=== PATIENT | male | born 1995 | race Caucasian/White ===

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

== ENCOUNTER 2020-12-01 09:18 | Emergency (ER) | payer OTHER, SELFPAY ==
[2020-12-01] MEDS ORDERED: Boostrix 0.5 ML (Tdap) VIAL ONE (09:55)
== END 2020-12-01 10:05 | disposition home or self-care (01) ==
LOC: NAV ERS 09:18
DX: L02.416 Cutaneous abscess of left lower limb (principal)
CPT/HCPCS: 90471; 90715

== ENCOUNTER 2022-04-02 19:57 | Emergency (ER) | payer OTHER, SELFPAY | END 2022-04-02 21:32 | disposition home or self-care (01) | LOC: NAV ERS 19:57 | DX: S71.151A Open bite, right thigh, initial encounter (principal); S61.257A Open bite of left little finger without damage to nail, initial encounter; W54.0XXA Bitten by dog, initial encounter ==

== ENCOUNTER 2022-04-24 14:22 | Emergency (ER) | payer OTHER, SELFPAY ==
[2022-04-24] MEDS ORDERED: Fentanyl 100 MCG/2 ML VIAL ONE (15:09)
[2022-04-24] MEDS ORDERED: cefTRIAXone\\ROCEPHIN 2 GM VIAL ONE (15:09)
[2022-04-24] MEDS ORDERED: Sodium Chloride 0.9% 1,000 ML ONE (15:09)
[2022-04-24] MEDS ORDERED: Sodium Chloride 0.9% 100 ML ONE (15:09)
[2022-04-24 15:24] LABS: #Eosinphils 0.1 thou/uL (0.0-0.7); #Lymphocytes 1.5 thou/uL (1.20-3.40); #Monocytes 0.7 thou/uL (0.11-0.59); #Neutrophils 5.8 thou/uL (1.40-6.50); %Basophils 0.4 % (0.0-1.0); %Eosinophils 0.9 % (0.0-10.0); %Lymphocytes 18.4 % (21.0-51.0); %Monocytes 8.8 % (0.0-10.0); %Neutrophils 71.6 % (42.0-75.0); Hemoglobin 13.9 g/dL (14.0-18.0); Mean Corpuscular HGB CONC 31.8 g/dL (32.0-36.0); Mean Corpuscular Hemoglobin 28.3 pg (27.0-31.0); Mean Corpuscular Volume 89.1 fL (78.0-98.0); Mean Platelet Volume 8.4 fL (7.4-10.4); Platelet Count 284 thou/uL (130-400); RBC Distribution Width 12.3 % (11.5-14.5); Red Blood Cell (RBC) Count 4.91 mill/uL (4.70-6.10); White Blood Cell (WBC) Count 8.2 thou/uL (4.8-10.8)
[2022-04-24 15:35] LABS: Anion Gap 18 mmol/L (10-20); BUN (Urea Nitrogen) 16 mg/dL (8.9-20.6); Calc. Creatinine Clearance 0 mL/min (70-130); Calcium 9.5 mg/dL (7.8-10.44); Carbon Dioxide 24 mmol/L (22-29); Chloride 106 mmol/L (98-107); Estimated GFR 127; Glucose 87 mg/dL (70-105); Potassium 4.2 mmol/L (3.5-5.1); Sodium 144 mmol/L (136-145)
== END 2022-04-24 16:12 | disposition home or self-care (01) ==
LOC: NAV ERS 14:22
DX: S61.551A Open bite of right wrist, initial encounter (principal); S61.451A Open bite of right hand, initial encounter; S61.552A Open bite of left wrist, initial encounter; S61.452A Open bite of left hand, initial encounter; W54.0XXA Bitten by dog, initial encounter
CPT/HCPCS: 80048; 83605; 85025; 96365; 96375; J0696; J3010; J3490; J7050

== ENCOUNTER 2023-04-17 08:49 | Emergency (ER) | payer OTHER, SELFPAY | END 2023-04-17 09:34 | LOC: NAV ERS 08:49 → EEVIPCON 08:49 → NAV ERS 09:34 | DX: S00.12XA Contusion of left eyelid and periocular area, initial encounter (principal); J34.89 Other specified disorders of nose and nasal sinuses; Y04.2XXA Assault by strike against or bumped into by another person, initial encounter; Y93.79 Activity, other specified sports and athletics | CPT/HCPCS: 99283 ==

== ENCOUNTER 2024-07-12 07:37 | Emergency (ER) | payer OTHER, SELFPAY | END 2024-07-12 12:12 | disposition short-term general hospital (02) | LOC: NAV ERS 07:37 | DX: S02.32XA Fracture of orbital floor, left side, initial encounter for closed fracture (principal); Y04.2XXA Assault by strike against or bumped into by another person, initial encounter | CPT/HCPCS: 70450; 70486; 72100; 72125 ==